=== PATIENT | female | born 1985 | race Caucasian/White ===

== ENCOUNTER 2016-07-06 17:52 | Emergency (ER) | payer OTHER, MEDICAID ==
[2016-07-06 18:01] VITALS: BP 126/89
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
[2016-07-06] MEDS ORDERED: IBUPROFEN 600 MG TABLET PO ONE (18:19)
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
== END 2016-07-06 19:37 | disposition home or self-care (01) ==
LOC: ER 17:52
DX: M54.2 Cervicalgia (principal); M54.5 Low back pain; M25.561 Pain in right knee; R07.9 Chest pain, unspecified; Z79.899 Other long term (current) drug therapy; V89.2XXA Person injured in unspecified motor-vehicle accident, traffic, initial encounter
CPT/HCPCS: 72050; 72110; 99283